=== PATIENT | female | born 1970 | race Caucasian/White ===

== ENCOUNTER 2017-07-20 12:29 | Emergency (ER) | payer BC ==
[2017-07-20] MEDS ORDERED: SUMAtriptan 6 MG/0.5 ML SDV SUBCUT ONE (13:02)
[2017-07-20] MEDS ORDERED: Ondansetron 4 MG Tab.DIS PO ONE (13:08)
[2017-07-20] MEDS ORDERED: Ondansetron 4 MG Tab.DIS ONE (13:09)
[2017-07-20] MEDS ORDERED: Ketorolac 30 MG/ML SDV IVPUSH ONE (13:45)
[2017-07-20] MEDS ORDERED: Sodium Chloride 0.9% 1,000 ML IV ONE (13:45)
[2017-07-20] MEDS ORDERED: diphenhydrAMINE 50 MG/ML SDV IVPUSH ONE (13:45)
[2017-07-20 13:55] VITALS: BP 120/75
--- NOTE | 2017-07-20 15:05 | EDM.PDOC ---
ED HPI GENERAL MEDICAL PROBLEM - General Chief Complaint: Headache Stated Complaint: HEADACHE Time Seen by Provider: 07/20/17 13:00 Source of Information: Reports: Patient, Family History Limitations: Reports: No Limitations - History of Present Illness INITIAL COMMENTS - FREE TEXT/NARRATIVE: 46-year-old female with chronic migraine headaches woke with a migraine this morning on the right side, tried to take her oral Imitrex but had persistent emesis. No fever or chills, no new symptoms. She's tends to respond to injections of Toradol and Benadryl. Onset: Unknown/Unsure (Headache started sometime overnight) Associated Symptoms: Reports: Nausea/Vomiting - Related Data Allergies Allergy/AdvReac Type Severity Reaction Status Date / Time No Known Allergies Allergy Verified 07/20/17 12:47 Home Meds: Home Meds SUMAtriptan Succinate [Imitrex] 07/20/17 [History] Past Medical History Neurological History: Reports: Migraines Social & Family History - Tobacco Use Smoking Status *Q: Never Smoker ED ROS GENERAL - Review of Systems Review Of Systems: See Below Constitutional: Denies: Fever, Chills Respiratory: Denies: Shortness of Breath GI/Abdominal: Reports: Nausea, Vomiting. Denies: Abdominal Pain Skin: Reports: No Symptoms Neurological: Reports: Headache. Denies: Dizziness, Paresthesia Psychiatric: Reports: No Symptoms - Physical Exam Exam: See Below Exam Limited By: No Limitations General Appearance: Alert, Moderate Distress (Looks uncomfortable) Head Exam: Atraumatic Respiratory/Chest: No Respiratory Distress Neuro Exam (Abbreviated): Alert, Oriented Psychiatric: Normal Affect, Normal Mood Skin Exam: Warm, Dry Course - Vital Signs Last Recorded V/S: Last Vital Signs Temp 97.7 F 07/20/17 12:53 Pulse 72 07/20/17 12:53 Resp 20 07/20/17 12:53 BP 120/75 07/20/17 12:53 Pulse Ox 97 07/20/17 12:53 - Orders/Labs/Meds Meds: Medications Discontinued Medications Generic Name Dose Route Start Last Admin Trade Name Freq PRN Reason Stop Dose Admin Diphenhydramine HCl 25 mg 07/20/17 13:45 07/20/17 13:56 Benadryl IVPUSH 07/20/17 13:46 25 mg ONETIME ONE Administration Sodium Chloride 1,000 mls @ 1,000 mls/hr 07/20/17 13:45 07/20/17 13:55 Normal Saline IV 07/20/17 14:44 1,000 mls/hr .BOLUS ONE Administration Ketorolac Tromethamine 30 mg 07/20/17 13:45 07/20/17 13:55 Toradol IVPUSH 07/20/17 13:46 30 mg ONETIME ONE Administration Ondansetron HCl 4 mg 07/20/17 13:08 07/20/17 13:11 Zofran Odt PO 07/20/17 13:09 4 mg ONETIME ONE Administration Ondansetron HCl Confirm 07/20/17 13:09 07/20/17 13:55 Zofran Odt Administered 07/20/17 13:10 Not Given Dose 4 mg .ROUTE .STK-MED ONE Sumatriptan Succinate 6 mg 07/20/17 13:02 07/20/17 13:11 Imitrex SUBCUT 07/20/17 13:03 6 mg ONETIME ONE Administration - Re-Assessments/Exams Free Text/Narrative Re-Assessment/Exam: 07/20/17 15:04 Patient was initially given 6 mg of Imitrex subcutaneously which did offer her some moderate relief but her nausea persisted. She was then given 1 L of normal saline IV along with 30 of Toradol and 25 mg of Benadryl. This gave her significant improvement enough to travel home to [place]. She can recheck with her primary physicians when home. Departure - Departure Time of Disposition: 15:27 Disposition: Home, Self-Care 01 Condition: Good Clinical Impression: Migraine - Discharge Information Instructions: Recurrent Migraine Headache, [id number] Referrals: PCP,None [Primary Care Provider] - Forms: ED Department Discharge Care Plan Goals: Rest today, increase activity as tolerated and resume your regular medications. Recheck in the next several days if not improving satisfactorily.
== END 2017-07-20 15:27 | disposition home or self-care (01) ==
LOC: JP.ED 12:29
DX: G43.909 Migraine, unspecified, not intractable, without status migrainosus (principal)
CPT/HCPCS: 96361; 96372; 96374; 96375; 99284; A9270; J1200; J1885; J3030; J7040